=== PATIENT | female | born 1970 | race American Indian/Alaskan Native ===

== ENCOUNTER 2023-05-11 12:17 | Day surgery (SDC) | payer BC ==
[~2023-05-11] VITALS: Ht 172.7 cm; Wt 137.7 kg
[2023-05-11] VITALS (7 sets, daily range): BP systolic 124–134; BP diastolic 58–84
[2023-05-11] MEDS ORDERED: LORazepam 0.5 MG tablet PO PRN (12:35)
[2023-05-11] MEDS ORDERED: normal saline 1,000 ML IV SCH (12:35)
[2023-05-11] MEDS ORDERED: diphenhydrAMINE 25mg capsule PO PRN (12:35)
[2023-05-11] MEDS ORDERED: SEMA2.4P (12:44)
[2023-05-11] MEDS ORDERED: ASCO500T19 (12:59)
[2023-05-11] MEDS ORDERED: CETI10CA PO (12:59)
[2023-05-11] MEDS ORDERED: VITA1CAP (12:59)
[2023-05-11] MEDS ORDERED: Vitamin D3 (12:59)
[2023-05-11] MEDS ORDERED: MULT-1085 PO (12:59)
[2023-05-11] MEDS ORDERED: Elderberry PO (12:59)
[2023-05-11] MEDS ORDERED: PSEU-303 PO (12:59)
[2023-05-11] MEDS ORDERED: ASPI-1071 PO (12:59)
[2023-05-11 13:42] LABS: BASOPHILS % (AUTO) 0.4 % (0-1); EOSINOPHILS # (AUTO) 0.1 X10'3 (0-0.9); EOSINOPHILS % (AUTO) 1.3 % (0-6); HEMATOCRIT 43.7 % (35.0-45.0); HEMOGLOBIN 14.5 g/dl (12.0-16.0); LYMPHOCYTES # (AUTO) 3.7 X10'3 (1.1-4.8); LYMPHOCYTES % (AUTO) 44.2 % (21-51); MEAN CORPUSCULAR HEMOGLOBIN 30.8 PG (27.0-31.0); MEAN CORPUSCULAR HGB CONC 33.1 g/dL (33.0-36.5); MEAN CORPUSCULAR VOLUME 93.1 FL (78-98); MEAN PLATELET VOLUME 8.3 FL (7.4-10.4); MONOCYTES # (AUTO) 0.6 X10'3 (0-0.9); MONOCYTES % (AUTO) 7.2 % (2-12); NEUTROPHILS % (AUTO) 46.9 % (42-75); PLATELET COUNT 273 X10'3 (140-440); RED BLOOD COUNT 4.69 X10'6 (4.20-5.60); RED CELL DISTRIBUTION WIDTH 13.8 % (11.5-14.5); WHITE BLOOD COUNT 8.5 X10'3 (4.5-11.0)
[2023-05-11 13:51] LABS: ALBUMIN 3.9 G/DL (3.4-5.0); ANION GAP 10 (8-16); BLOOD UREA NITROGEN 13 MG/DL (7-18); BUN/CREATININE RATIO 15.9 (10.0-20.0); CALCIUM 9.2 MG/DL (8.5-10.1); CHLORIDE 106 MMOL/L (99-107); CREATININE 0.82 MG/DL (0.40-0.90); GLUCOSE 85 MG/DL (70-104); POTASSIUM 3.5 MMOL/L (3.5-5.1); SODIUM 140 MMOL/L (135-145); TOTAL CARBON DIOXIDE 23.7 MMOL/L (24-32); eGFR 73 ML/MIN
[2023-05-11 13:54] LABS: APTT 30 SECONDS (22-32)
[2023-05-11] MEDS ORDERED: fentaNYL/PF 50MCG/1 ML 2ML syringe ONE (15:01)
[2023-05-11] MEDS ORDERED: nitroGLYCERIN-Tridil 50MG/D5W 250 ML IV ONE (15:01)
[2023-05-11] MEDS ORDERED: LIDOcaine 1% (10mg/ml) 2ml vial ONE (15:01)
[2023-05-11] MEDS ORDERED: verapamil 2.5 mg/ml inj IV ONE (15:01)
[2023-05-11] MEDS ORDERED: midazolam 1 mg/ML 2ml injection ONE ×2 (15:02→16:34)
[2023-05-11] MEDS ORDERED: heparin 1,000unit/ml 10ml vial 10 ML ONE (15:02)
[2023-05-11] MEDS ORDERED: iohexol 350MG/ML 100ml bottle IV ONE (15:02)
== END 2023-05-11 19:18 | disposition home or self-care (01) ==
LOC: SSTAY O 12:17
PROVIDERS: ATTEND Student in an Organized Health Care Education/Training Program
DX: R94.39 Abnormal result of other cardiovascular function study (principal); E78.5 Hyperlipidemia, unspecified; E66.9 Obesity, unspecified; Z68.42 Body mass index [BMI] 45.0-49.9, adult; Z87.442 Personal history of urinary calculi; Z79.899 Other long term (current) drug therapy; Z79.82 Long term (current) use of aspirin; Z88.5 Allergy status to narcotic agent; Z79.01 Long term (current) use of anticoagulants
CPT/HCPCS: 36415; 80048; 85025; 85610; 85730; 93458; 99152; 99153; J1644; J2250; J3010; J3490; J7030; Q0163; Q9967; A6258; A6402; C1894